=== PATIENT | male | born 1955 | race Caucasian/White ===

== ENCOUNTER 2017-01-01 10:32 | Emergency (ER) | payer BC ==
--- NOTE | 2017-01-01 11:27 | RAD ---
Name: KENDRA TRUJILLO Exam: Two-view chest Comparison: None Clinical history: Cough Findings: 2 views of the chest are submitted. Heart, mediastinum and hilar structures are normal. There is no failure, infiltrate, pleural effusion or pneumothorax. There is been prior left shoulder surgery. Impression: 1. No acute cardiopulmonary process 2. Prior left shoulder surgery
[2017-01-01] MEDS ORDERED: ALBUTEROL/IPRATROPIUM 2.5/0.5 MG 3 ML/EACH DOSE ONE (11:31)
[2017-01-01] MEDS ORDERED: LACTATED RINGERS 1,000 ML ONE (11:35)
[2017-01-01 11:48] LABS: BASO % 0.4 % (0.2-1.0); EOS % 0.1 % (0.9-2.9); HEMATOCRIT 40.5 % (32.0-52.0); HEMOGLOBIN 13.6 gm/l (14.0-18.0); IMM NEUT% 0.3 % (0-1); LYMPH # 0.8 (1.0-4.8); LYMPH % 12.2 % (15-45); MEAN CELL VOLUME 89.2 fl (80.0-94.0); MEAN CORPUSCULAR HGB CONC 33.6 g/dl (33.0-37.0); MEAN PLATELET VOLUME 9.5 fl (7.4-10.4); MONO # 0.8 (0.0-0.8); MONO % 11.8 % (4-12); NEUT % 75.2 % (43-75); PLATELET COUNT 190 K/mm3 (130-400); RED CELL DISTRIBUTION WIDTH 12.8 % (11.5-14.5)
[2017-01-01 12:10] LABS: ALB/GLOB RATIO 1.7 (>1.0); CALCIUM 8.8 mg/dL (8.6-10.3)
== END 2017-01-01 12:56 | disposition home or self-care (01) ==
LOC: ED 10:32
DX: R05 Cough (principal); R07.9 Chest pain, unspecified; R06.2 Wheezing; F17.210 Nicotine dependence, cigarettes, uncomplicated
CPT/HCPCS: 85025; 80053; 84484; 71020; 94640; 99283 ×2; 96360; 93005; J7120